=== PATIENT | female | born 1985 | race Caucasian/White ===

== ENCOUNTER → 2016-12-17 | Outpatient (CLI) | payer BC ==
[~2016-12-17] VITALS: Ht 170.2 cm; Wt 93.2 kg
[~2016-12-17] MED LIST: PRENATAL TABLE1 EAC3 PO
[2016-12-17 15:44] VITALS: BP 116/74
== END | disposition home or self-care (01) ==
LOC: IVINF 15:00
DX: Z31.82 Encounter for Rh incompatibility status (principal); Z3A.00 Weeks of gestation of pregnancy not specified
CPT/HCPCS: 96372; J2790

== ENCOUNTER 2017-02-26 15:20 | Outpatient (CLI) | payer BC ==
[2017-02-26 15:51] VITALS: BP 135/85
[2017-02-26 16:20] VITALS: BP 125/79
[2017-02-26 17:59] LABS: ADD MIUA? NO; BILIRUBIN NEGATIVE; BLOOD NEGATIVE; COLOR STRAW ((YELLOW)); GLUCOSE (STRIP) NEGATIVE; KETONES NEGATIVE; LEUKOCYTES NEGATIVE; NITRITE NEGATIVE; PROTEIN (STRIP) NEGATIVE; SPECIFIC GRAVITY 1.004 (1.000-1.030); UCUL ADDED? NO; UROBILINOGEN 0.2 MG/DL (0.2-1.0)
[2017-02-26 18:19] LABS: AMPHETAMINE NEGATIVE (500 ng/mL); BARBITURATES NEGATIVE (200 ng/mL); BENZODIAZEPINES NEGATIVE (150 ng/mL); COCAINE NEGATIVE (150 ng/mL); INTERNAL CONTROLS VALID? YES; METHADONE NEGATIVE (200 ng/mL); METHAMPHETAMINE NEGATIVE (500 ng/mL); OPIATES (MORPHINE) NEGATIVE (100 ng/mL); OXYCODONE NEGATIVE (100 ng/mL); PHENCYCLIDINE NEGATIVE (25 ng/mL); PROPOXYPHENE NEGATIVE (300 ng/mL); THC CANNABINOIDS NEGATIVE (50 ng/mL); TRICYCLIC ANTIDEPRESSANTS NEGATIVE (300 ng/mL)
[2017-02-26 18:21] LABS: UR CREATININE CONCENTRATION 34.9 MG/DL
[2017-02-26 20:59] VITALS: BP 132/73
[2017-02-26 21:44] VITALS: BP 134/73
== END 2017-02-26 22:05 | disposition home or self-care (01) ==
LOC: LDRP-OP 15:20 → 2WEST 15:22 → LDRP-OP 04-16 09:44
PROVIDERS: Obstetrics & Gynecology
DX: O99.353 Diseases of the nervous system complicating pregnancy, third trimester (principal); Z3A.37 37 weeks gestation of pregnancy; O26.893 Other specified pregnancy related conditions, third trimester; Z86.73 Personal history of transient ischemic attack (TIA), and cerebral infarction without residual deficits; H53.8 Other visual disturbances; R47.81 Slurred speech
CPT/HCPCS: 59025; 81003; 82570; 84156; 84450; 84460; G0378

== ENCOUNTER 2017-02-26 18:26 | Emergency (ER) | payer BC ==
[~2017-02-26] VITALS: Ht 170.2 cm; Wt 79.4 kg
[2017-02-26 19:05] LABS: EOSINOPHIL (%) 0.8 % (0-5); EOSINOPHIL COUNT 0.1 K/uL (0-0.3); HEMATOCRIT 32.2 % (36.0-46.0); IMMATURE GRANULOCYTE (%) 0.8 % (0.0-0.7); IMMATURE GRANULOCYTE COUNT 0.1 K/uL; INSTRUMENT ABS NEUTROPHIL CT 5.5 K/uL; LYMPHOCYTE COUNT 1.7 K/uL (1.0-2.8); MCH 31.2 PG (29.0-34.0); MCHC 34.5 G/DL (30.0-36.0); MCV 90.4 FL (83-99); MEAN PLAT.VOLUME 8.8 uM^3 (9.5-12.4); MONOCYTE (%) 7.3 % (3-12); MONOCYTE COUNT 0.6 K/uL (0-0.8); NEUTROPHIL (%) 68.9 % (45-76); NEUTROPHIL COUNT 5.5 K/uL (1.8-6.4); PLATELET COUNT 240 K/uL (156-360); RBC DIS.WIDTH-CV 12.4 % (11.8-14.6); RBC DIS.WIDTH-SD 40.5 % (39-53); RED BLOOD COUNT 3.56 M/uL (3.80-5.20)
[2017-02-26 19:17] LABS: CHLORIDE 107 mEq/L (99-109); POTASSIUM 3.2 mEq/L (3.7-5.4); SODIUM 136 mEq/L (136-147)
[2017-02-26 19:19] LABS: GLUCOSE 108 mg/dL (70-99)
[2017-02-26 19:21] LABS: ANION GAP 9 MEQ/L (2-14)
[2017-02-26 19:23] LABS: GFR ESTIMATE (CALCULATED) > 59 mL/min/
[2017-02-26 19:24] LABS: UREA NITROGEN (BUN) 10 mg/dL (9-23)
[2017-02-26 21:04] VITALS: BP 129/85
== END 2017-02-26 21:03 | disposition home or self-care (01) ==
LOC: EME 18:26
PROVIDERS: Emergency Medicine
DX: O99.89 Other specified diseases and conditions complicating pregnancy, childbirth and the puerperium (principal); G43.109 Migraine with aura, not intractable, without status migrainosus; Z3A.37 37 weeks gestation of pregnancy; Z86.73 Personal history of transient ischemic attack (TIA), and cerebral infarction without residual deficits; Z88.0 Allergy status to penicillin
CPT/HCPCS: 70450; 80048; 85025; 99281; 99285

== ENCOUNTER 2017-03-01 14:30 | Inpatient (IN) | payer BC ==
[~2017-03-01] VITALS: Ht 170.2 cm; Wt 99.0 kg
[2017-03-01] VITALS (13 sets, daily range): BP systolic 124–173; BP diastolic 67–97
[2017-03-01 16:29] LABS: EOSINOPHIL (%) 0.8 % (0-5); EOSINOPHIL COUNT 0.1 K/uL (0-0.3); HEMATOCRIT 32.8 % (36.0-46.0); IMMATURE GRANULOCYTE (%) 0.7 % (0.0-0.7); IMMATURE GRANULOCYTE COUNT 0.1 K/uL; INSTRUMENT ABS NEUTROPHIL CT 5.2 K/uL; LYMPHOCYTE COUNT 1.6 K/uL (1.0-2.8); MCH 30.4 PG (29.0-34.0); MCHC 33.5 G/DL (30.0-36.0); MCV 90.6 FL (83-99); MEAN PLAT.VOLUME 8.7 uM^3 (9.5-12.4); MONOCYTE (%) 8.7 % (3-12); MONOCYTE COUNT 0.7 K/uL (0-0.8); NEUTROPHIL (%) 68.1 % (45-76); NEUTROPHIL COUNT 5.2 K/uL (1.8-6.4); PLATELET COUNT 217 K/uL (156-360); RBC DIS.WIDTH-CV 12.4 % (11.8-14.6); RBC DIS.WIDTH-SD 40.6 % (39-53); RED BLOOD COUNT 3.62 M/uL (3.80-5.20); WHITE BLOOD COUNT 7.6 K/uL (4.1-10.2)
[2017-03-01 16:58] LABS: ALKALINE PHOSPHATASE 112 IU/L (3-129); ANION GAP 8 MEQ/L (2-14); CHLORIDE 106 MEQ/L (99-109); GFR ESTIMATE (CALCULATED) > 59 mL/min/; GLUCOSE 94 mg/dL (70-99); LACTATE DEHYDROGENASE 151 IU/L (20-246); POTASSIUM 3.5 MEQ/L (3.7-5.4); SAMPLE HEMOLYSIS CHECK 0; SAMPLE ICTERIC CHECK 0; SAMPLE LIPEMIA CHECK 0; SODIUM 136 MEQ/L (136-147); TOTAL BILIRUBIN 0.2 MG/DL (0.0-1.0); UREA NITROGEN (BUN) 9 mg/dL (9-23); URIC ACID 2.1 mg/dL (3.1-9.2)
[2017-03-01 17:17] LABS: UR CREATININE CONCENTRATION 37.3 MG/DL
[2017-03-01] MEDS ORDERED: ZANTAC150 MG PO (22:20)
[2017-03-02] VITALS (37 sets, daily range): BP systolic 91–144; BP diastolic 50–93
[2017-03-03 07:35] VITALS: BP 103/53
[2017-03-03 07:49] LABS: EOSINOPHIL (%) 0.6 % (0-5); EOSINOPHIL COUNT 0.1 K/uL (0-0.3); HEMATOCRIT 29.6 % (36.0-46.0); IMMATURE GRANULOCYTE (%) 0.4 % (0.0-0.7); INSTRUMENT ABS NEUTROPHIL CT 7.1 K/uL; LYMPHOCYTE COUNT 1.2 K/uL (1.0-2.8); MCH 31.4 PG (29.0-34.0); MCHC 34.1 G/DL (30.0-36.0); MCV 91.9 FL (83-99); MEAN PLAT.VOLUME 8.8 uM^3 (9.5-12.4); MONOCYTE (%) 9.8 % (3-12); MONOCYTE COUNT 0.9 K/uL (0-0.8); NEUTROPHIL (%) 76.2 % (45-76); NEUTROPHIL COUNT 7.1 K/uL (1.8-6.4); PLATELET COUNT 165 K/uL (156-360); RBC DIS.WIDTH-CV 12.7 % (11.8-14.6); RBC DIS.WIDTH-SD 42.2 % (39-53); RED BLOOD COUNT 3.22 M/uL (3.80-5.20); WHITE BLOOD COUNT 9.3 K/uL (4.1-10.2)
[2017-03-03 14:25] VITALS: BP 121/71
[2017-03-04 00:13] VITALS: BP 138/86
[2017-03-04 07:28] VITALS: BP 135/79
[2017-03-04] MEDS ORDERED: DOCUSATE SODIU100 MG PO (10:36)
[2017-03-04] MEDS ORDERED: CAMILA0.35 MG PO (10:36)
[2017-03-04] MEDS ORDERED: IBUPROFEN800 MG PO (10:36)
[2017-03-04 15:30] VITALS: BP 136/75
== END 2017-03-04 18:33 | disposition home or self-care (01) | DRG 775 ==
LOC: LDRP-OP 14:30 → 2WEST 14:31 → LDRP-OP 04-16 22:56
PROVIDERS: Advanced Practice Midwife
DX: O70.0 First degree perineal laceration during delivery (principal); R03.0 Elevated blood-pressure reading, without diagnosis of hypertension; O99.284 Endocrine, nutritional and metabolic diseases complicating childbirth; E87.6 Hypokalemia; O99.824 Streptococcus B carrier state complicating childbirth; O99.344 Other mental disorders complicating childbirth; F41.1 Generalized anxiety disorder; O99.354 Diseases of the nervous system complicating childbirth; G43.909 Migraine, unspecified, not intractable, without status migrainosus; O99.214 Obesity complicating childbirth; E66.3 Overweight; Z68.27 Body mass index [BMI] 27.0-27.9, adult; Z88.0 Allergy status to penicillin; Z88.1 Allergy status to other antibiotic agents; Z3A.37 37 weeks gestation of pregnancy; Z37.0 Single live birth
CPT/HCPCS: 76805; 76818; 80053; 82570; 83030; 83615; 84156; 84550; 85025; 86850; 86870; 86900; 86901; 86905; C1755; G0378; J2405; J2790; J7120